=== PATIENT | male | born 1965 | race Caucasian/White ===

== ENCOUNTER 2018-06-23 07:38 | Outpatient (CLI) | payer BC ==
--- NOTE | 2018-06-23 10:22 | MRI ---
MRI CERVICAL SPINE: HISTORY: Patient complaining of right arm pain and numbness since October. TECHNIQUE: Multiplanar, multisequence, noncontrast enhanced MR images of the cervical spine obtained. FINDINGS: Images demonstrate an area of expansile central cystic change, beginning at the T2 level, extending i nferiorly, into the thoracic cord. There is a small, approximately 1 x 2 mm, right-sided, posterior, cervical component, which extends from the T1 level, extending upward to involve the entire right ce rvical spine cord length, extending all the way to the C2 level. 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 The inferior extent cannot be determined, as MRI of the thoracic spine is not ob tained. Correlate with MRI thoracic spine. In addition, contrast enhanced MR images of the cervical spine and thoracic spine are also recommende d. C1-C2: Unremarkable. C2-C3: There is a broad-based disk osteophyte complex, minimally but not significantly compressing t he thecal sac. The neural foramen are patent. C3-C4: There is a minimal broad-based disk bulge. The central canal and neural foramen are patent. C4-C5: There is a broad-based disk osteophyte complex centrally compressing the thecal sac, resultin g in moderate thecal sac compression. Moderate right-sided and minimal left-sided C4-C5 neural tanner inal narrowing is seen due to uncovertebral osteophyte hypertrophy. C5-C6: There is minimal disk desiccation. There is a broad-based disk osteophyte complex compressin g the thecal sac. There is moderate bilateral C5-C6 neural foraminal narrowing due to uncovertebral osteophyte hypertrophy. C6-C7: There is lanie desiccation seen. There is a broad-based disk osteophyte complex seen centrall y, compressing the thecal sac, resulting in a moderate degree of central stenosis. There is moderate bilateral neural foraminal narrowing seen. C7-T1: Unremarkable, except for the signal abnormality seen within the spinal cord. IMPRESSION: 1. 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 2. Multilevel disk desiccation and neural foraminal narrowing also seen. POS: [facility]
== END 2018-06-23 07:39 | disposition home or self-care (01) ==
LOC: TBSIIMAG 07:38
PROVIDERS: ATTEND Neurological Surgery
DX: M50.122 Cervical disc disorder at C5-C6 level with radiculopathy (principal); M48.02 Spinal stenosis, cervical region
CPT/HCPCS: 72141

== ENCOUNTER 2018-07-28 14:34 | Outpatient (CLI) | payer BC ==
[~2018-07-28 14:34] MED LIST: Gadobenate Dimeglumine 529 MG/1 ML (20ML VIAL) ONE
--- NOTE | 2018-07-28 16:40 | MRI ---
MRI THORACIC SPINE WITH AND WITHOUT CONTRAST: 07/28/18 HISTORY: 53-year-old male with G95.0 - syrinx found on cervical spine MRI. FINDINGS: There is a centrally located syrinx which begins at C7-T1, has greatest diameter at T3 in which the c ross-sectional AP and transverse dimensions are 0.8 x 0.8 cm, expanding the spinal cord at T3. It ext ends down to the T4-5 level. There is tapering of the syrinx at the superior and inferior ends. There are septations within the syrinx at the T1-2 level and at the T3-4 level. Inferior to that, the central canal of the spinal cord is minimally and mildly dilated to varying deg emiliano, on the order of 0.2 cm. This extends down to the T10-11 level. Parallel to the cranial aspect of this syrinx (which is probably a hydromyelia), there is another rig ht posterior syrinx (syringomyelia) that begins at approximately the T2 level and ascends up through the cervical spinal cord, fully demonstrated on the MRI of the cervical spine of 06/23/18. There is no abnormal enhancement to indicate tumor, associated with the syringes. There is no central spinal canal stenosis at any level, but the expanded spinal cord at the lower T2 to T3-4 levels resu lts in effacement of much of the surrounding CSF space around the spinal cord. The vertebral body hei ghts are maintained. Alignment is normal. No high grade degenerative disc disease. There is mild disc space narrowing at several levels in the mid and lower thoracic spine. No major bone marrow signal a bnormality. There are small focal round signal abnormalities in the T3, T4, and T5 vertebral bodies w hich are T1 and T2 hyperintense, probably representing small hemangiomas of bone. There is a larger r egion of T1 and T2 hyperintensity at the anterior aspect of the T10 vertebral body which does not exh ibit hyperintense signal on the STIR sequence, and appears to be benign. There is no extrinsic cord i mpingement except at the C7-T1 where there is disc-osteophyte complex indenting the spinal cord. Ther e is no extrinsic cord impingement in the thoracic spine proper. No high grade neural foraminal steno sis. IMPRESSION: 1. Syringohydromyelia (syrinx). 2. The centrally located syrinx is largest in the upper thoracic spine, where it expands the spi nal cord. There is mild hydromyelia throughout most of the rest of the thoracic spinal cord. 3. There is an off-center right posterior syrinx (syringomyelia) that begins in the upper thorac ic spine and ascends throughout the cervical spinal cord. 4. No evidence of neoplasm. POS: [facility]
== END 2018-07-28 14:35 | disposition home or self-care (01) ==
LOC: TBSIIMAG 14:34
PROVIDERS: ATTEND Neurological Surgery
DX: G95.0 Syringomyelia and syringobulbia (principal)
CPT/HCPCS: 72157; A9577

== ENCOUNTER 2019-01-13 09:16 | Outpatient (CLI) | payer BC ==
--- NOTE | 2019-01-13 11:24 | MRI ---
MRI THORACIC SPINE WITH AND WITHOUT CONTRAST: Date: 01/13/19 HISTORY: 53-year-old male with syrinx (syringohydromyelia). Follow-up. COMPARISON: 07/28/18. FINDINGS: There is an off-center right posterior syrinx that is present in the cervical spinal cord (incomplete ly included on this MRI of the thoracic spine), and descends down to approximately the T2 level of th e thoracic spine. Parallel to that, there is a large midline syrinx in the upper thoracic spinal cord, expanding the up per thoracic spinal cord, beginning at approximately T1 or T1-2, with cross-sectional AP and transver se dimensions of approximately 0.8 x 0.8 cm at T3. It extends down to the T4-5 level. There is contin uation of this syrinx as mild expansion of the central canal of the spinal cord (hydromyelia) approxi mately 0.2 cm caliber, down to the T10-11 level. Within the most expanded portion of the syrinx in the upper thoracic spine, there is T2-intermediate signal intensity material which does not enhance. This could represent CSF flow artifact if there is turbulent flow within the syrinx. It is less likely to represent nonenhancing neoplastic tumor or hem atoma. There is no abnormal enhancement within the spinal cord. No extrinsic impingement on the spina l cord in the thoracic spine proper. (There is disc-osteophyte complex mildly indenting the spinal co rd at C6-7 in the cervical spine.) No high grade bony central spinal canal stenosis at any level. Michelle tebral body heights are maintained. No interval change overall. IMPRESSION: 1. Syringohydromyelia (syrinx). 2. The centrally located syrinx is largest in the upper thoracic spine, where it expands the spinal cord. There is heterogeneous signal within the expanded portion of the syrinx. 3. There is an off-center right-sided syrinx (syringomyelia) that is located in the cervical spinal cord and extends down to the upper thoracic spinal cord. 4. No abnormal enhancement. 5. No interval change overall since 07/28/18. POS: [facility]
== END 2019-01-13 09:17 | disposition home or self-care (01) ==
LOC: BICMRI 09:16
PROVIDERS: ATTEND Neurological Surgery
DX: G95.0 Syringomyelia and syringobulbia (principal)
CPT/HCPCS: 72157; 82565

== ENCOUNTER 2019-05-30 14:38 | Outpatient (CLI) | payer BC ==
[~2019-05-30 14:38] MED LIST changes: -Gadobenate Dimeglumine 529 MG/1 ML (20ML VIAL) ONE; +Magnevist 469MG/ML 20 ML VIAL ONE
--- NOTE | 2019-05-30 16:10 | MRI ---
MRI THORACIC SPINE WITH AND WITHOUT CONTRAST: HISTORY: Syrinx. Follow-up exam. COMPARISON: 01/13/2019 12/15/2018 TECHNIQUE: MRI thoracic spine is performed with and without intravenous gadolinium administration. Multisequenti al, multiplanar imaging is performed. FINDINGS: Appropriate T1 marrow signal intensity of the thoracic vertebrae. Thoracic spine vertebral body heigh t is maintained. No fracture. No significant STIR hyperintensity to suggest vertebral body edema or ligamentous injury. Redemonstration of a T2 hyperintensity with cord expansion involving the distal cervical cord and upp er thoracic cord to the level of the T4 vertebral body. There is T1 signal isointensity with associated T2 hypointensity involving the expanded thoracic cord at the T3 level, unchanged. There is interval development of a small focus of septation along the inferior aspect of the expanded syrinx at the T3-T4 disc space. There is no evidence of enhancement o n the post contrast images. Distal to the area of expansion and T2 hyperintensity, there is an intermittent syrinx, also unchanged. The thoracic cord has overall normal size and signal intensity f rom the T4 level to the conus medullaris which terminates at the upper lumbar level. The visualized mediastinal structures, solid organs and lung parenchyma are unremarkable. T2 hyperint ensity in the right renal cortex measures 1.4 cm, compatible with a cyst. Throughout the thoracic spine, there is no significant central canal stenosis or significant neural f oraminal narrowing IMPRESSION: 1. Essentially stable syringohydromyelia involving the visualized distal cervical cord and thoracic c ord. 2. Stable centrally located syrinx without expansion of the upper thoracic cord. Heterogeneous signal intensity within the expanded portion of the syrinx is unchanged. There is no abnormal enhancement. Interval development of a small focus of septation along the inferior aspect of the cent rally expanded syrinx at the T3-T4 disc space. Transcribed Date/Time: 05/30/2019 4:15 PM
== END 2019-05-30 14:39 | disposition home or self-care (01) ==
LOC: TBSIIMAG 14:38
PROVIDERS: ATTEND Neurological Surgery
DX: G95.0 Syringomyelia and syringobulbia (principal)
CPT/HCPCS: 72157; A9579

== ENCOUNTER 2019-06-02 06:44 | Outpatient (CLI) | payer BC | END 2019-06-02 06:45 | disposition home or self-care (01) | LOC: LABBT 06:44 | PROVIDERS: ATTEND Neurological Surgery | DX: Z01.818 Encounter for other preprocedural examination (principal); M54.12 Radiculopathy, cervical region | CPT/HCPCS: 93005; 93010 ==

== ENCOUNTER 2019-06-06 05:38 | Day surgery (SDC) | payer BC ==
[2019-06-02 09:42] VITALS: BMI 34.8
[2019-06-06] MEDS ORDERED: Fentanyl 100 MCG/2 ML VIAL ONE ×2 (06:36→08:39)
[2019-06-06] MEDS ORDERED: Thrombin 5000 UNITS/5 ML VIAL ONE (06:47)
[2019-06-06] MEDS ORDERED: Midazolam HCl 2 mg/2 ml Vial ONE (06:57)
--- NOTE | 2019-06-06 07:05 | HP ---
HISTORY OF PRESENT ILLNESS: Mr. Walker is a pleasant 53-year-old man, here for evaluation of significant cervical radiculopathy symptoms that would fit well a C6 pattern. He does have a syrinx on MRI, and this has been these other symptoms are more recent. reveals narrowing at C5-6 that would fit this. He has attempted injections, physical therapy, and medications with some relief, however, nonsustained. He hopes to discuss surgical intervention at this time. PAST MEDICAL HISTORY: Significant for anxiety, hypertension. PAST SURGICAL HISTORY: Tonsillectomy. CURRENT MEDICATIONS: 1. Olmesartan. 2. . 3. Aspirin. 4. Alprazolam. 5. Fenofibrate. ALLERGIES: NO KNOWN DRUG ALLERGIES. PHYSICAL EXAMINATION: GENERAL: The patient is alert and oriented x3. NEUROLOGIC: Gait is normal. No ataxia. He has some mild restriction in his cervical range of motion secondary to pain. Normal 5/5 strength in all movements of the bilateral upper extremities. No obvious sensory disturbance that I can discern. ASSESSMENT: Cervical radiculopathy. PLAN: Dr. Howell met with the patient, reviewed imaging, advocated for C5-6 ACDF. He explained to the patient the risks, benefits, and alternatives to the procedure. The patient expressed understanding and elected to move forward with surgery as discussed. I do believe the patient is mentally component and capable of making medical decisions for himself. We will move forward with surgery as planned. Job ID: [id number]
[2019-06-06] MEDS ORDERED: Tamsulosin HCl 0.4 MG CAP ONE (08:39)
[2019-06-06] MEDS ORDERED: Cyclobenzaprine 10 MG TAB ONE (09:14)
[2019-06-06] MEDS ORDERED: Morphine 2 MG/ML SYRINGE ONE (09:15)
[2019-06-06] MEDS ORDERED: Acetaminophen/Codeine 30-300mg Tablet ONE (09:43)
[2019-06-06] MEDS ORDERED: Lidocaine 1% PF 5 ML VIAL ONE (10:10)
[2019-06-06] MEDS ORDERED: Ketorolac Tromethamine 30 MG/ML VIAL ONE (10:10)
[2019-06-06] MEDS ORDERED: Rocuronium Bromide 10 MG/ML (10ML VIAL) ONE (10:10)
[2019-06-06] MEDS ORDERED: PHENYLEPHRINE-NS 100 MCG/ML 10 ML SYRINGE ONE (10:10)
[2019-06-06] MEDS ORDERED: Ondansetron PF 4 MG/2 ML Vial ONE (10:10)
[2019-06-06] MEDS ORDERED: Dexamethasone 20 MG/5 ML VIAL ONE (10:10)
[2019-06-06] MEDS ORDERED: PROPOFOL 200 MG/20 ML VIAL ONE (10:10)
--- NOTE | 2019-06-06 11:40 | OP ---
DATE OF PROCEDURE: 06/06/2019 BROADCAST CORRESPONDENT: Familia Fournier PA-C INDICATION: Pain. DIAGNOSIS: Cervical radiculopathy. PROCEDURE PERFORMED: Anterior cervical diskectomy and fusion, C5-C6. ANESTHESIA: General. DESCRIPTION OF PROCEDURE: The patient was brought into the operating room and placed under general anesthesia. He was placed on table in a supine position. A transverse incision was planned over the lateral aspect of the neck on the right. After prepping and draping and after an appropriate perioperative pause, the incision was created. The underlying platysma muscle was identified and incised. A blunt tissue plane was used to gain access to the prevertebral space. Self-retaining retractors were then placed for optimal exposure. A C-arm image was obtained to confirm the appropriate level. An annulotomy was then performed in the C5-C6 disk space. All disk material as well as anterior and posterior osteophytes were removed. After completing the decompression, a 7-mm lordotic PEEK cage packed with allograft and autograft material was placed within the interbody space. An anterior cervical plate was then fashioned to the front of spine and secured with a total of 4 fixed screws. Midline and lateral structures were inspected and found to be free from significant trauma. The wound was irrigated. Hemostasis was maintained throughout. The wound was then closed in anatomic layers and a pressure dressing was applied. There were no known procedural complications. Job ID: [id number]
== END 2019-06-06 11:15 | disposition home or self-care (01) ==
LOC: SDC 05:38
PROVIDERS: ATTEND Neurological Surgery
PROC: 0RG10A0 Fusion of Cervical Vertebral Joint with Interbody Fusion Device, Anterior Approach, Anterior Column, Open Approach (ICD-10-PCS; principal; 2019-06-06)
PROC: 0RT30ZZ Resection of Cervical Vertebral Disc, Open Approach (ICD-10-PCS; principal; 2019-06-06)
DX: M54.12 Radiculopathy, cervical region (principal); I10 Essential (primary) hypertension; F41.9 Anxiety disorder, unspecified; Z79.82 Long term (current) use of aspirin; Z79.899 Other long term (current) drug therapy
CPT/HCPCS: 76000; C1713; C1776; J0690; J1100; J1885; J2001; J2250; J2270; J2405; J2704; J3010

== ENCOUNTER 2019-11-08 13:19 | Outpatient (CLI) | payer BC ==
--- NOTE | 2019-11-08 15:03 | MRI ---
MRI cervical spine with and without contrast: DATE: 11/08/2019 HISTORY: 54-year-old male with cervical radiculopathy COMPARISON: 06/23/2018 FINDINGS: Again noted is the expansile syrinx in the upper thoracic spinal cord, incompletely imaged on this C- spine MRI. Centered in the right posterior aspect of the spinal cord, there is syrinx, syringomyelia, from upper-mid C2 level down to at least the T1 level of the upper thoracic spine. The cross-sectional caliber of this syrinx is approximately 0.4 x 0.1 cm. Additionally, there is minimal dilation of the central canal of the spinal cord (hydromyelia) at midl ine at C2 level approximately 1 mm caliber, which also is seen all all levels from C3 through upper thoracic spine. Cerebellar tonsils are slightly peg-shaped, and protrude inferior to the foramen magnum a distance of approximately 6 to 7 mm. Cervical spinal canal is diffusely small on a congenital basis due to developmentally short pedicles. There is no abnormal intramedullary enhancement. No abnormal enhancement or mass in the spinal canal, bone, or perivertebral spaces. Caliber of spinal cord is normal. C1-2: Mild to moderate central stenosis entirely on developmental basis. C2-3: Normal disc space and facet joints. Moderate central spinal canal stenosis entirely on developm ental basis. No neural foraminal stenosis. C3-4: Disc space maintained. Essentially normal facet joints. Moderate central spinal canal stenosis entirely on developmental basis. No neural foraminal stenosis. Normal facet joints. C4-5: Broad-based central and bilateral paracentral disc protrusion or disc-osteophyte complex exacer suarez the developmentally small caliber spinal canal, indenting the spinal cord, resulting in severe central spinal canal stenosis. Small bilateral uncinate process osteophytes cause at least mil d bilateral neural foraminal stenosis. No high-grade facet DJD. C5-6: New ACDF hardware. Shallow, broad-based disc-osteophyte complex abuts the ventral surface of sp inal cord, exacerbating the developmentally small caliber spinal canal, resulting in. Moderate size bilateral uncinate process osteophytes cause moderate-severe bilateral neural foraminal stenosis some what severe central spinal canal stenosis. No high-grade facet DJD. C6-7: Chronic minimal anterolisthesis of C6 on C7, plus broad-based central and bilateral paracentral disc-osteophyte that indents the ventral surface of spinal cord. Severe central spinal canal stenosis. Bilateral uncinate process osteophytes of moderate size causing mild to moderate bilateral neural foraminal stenosis. Mild to moderate disc space narrowing. C7-T1: No central stenosis. Bilateral mild to moderate neural foraminal stenosis. At least mild bilat eral facet DJD. Disc space maintained. IMPRESSION: 1. The only interval change is new anterior cervical discectomy and fusion at C5-6. 2. Syringohydromyelia involving essentially the entire cervical spinal cord, consisting of right post erior syringomyelia, and tiny midline hydromyelia. 3. Larger expansile syrinx at upper thoracic spine, incompletely imaged. 4. Developmental a small caliber spinal canal exacerbated by mild cervical spondylosis. Multiple leve ls of high-grade central spinal canal stenosis and high-grade neural foraminal stenosis, not significant changed. 5. Mild Chiari I malformation.
== END 2019-11-08 13:20 | disposition home or self-care (01) ==
LOC: TBSIIMAG 13:19
PROVIDERS: ATTEND Neurological Surgery
DX: M47.22 Other spondylosis with radiculopathy, cervical region (principal); G95.0 Syringomyelia and syringobulbia; M48.02 Spinal stenosis, cervical region; G93.5 Compression of brain; Q06.4 Hydromyelia
CPT/HCPCS: 72156

== ENCOUNTER 2020-05-14 10:41 | Outpatient (CLI) | payer BC ==
--- NOTE | 2020-05-14 12:22 | RAD ---
CERVICAL SPINE 3 VIEWS: Date; 05/14/2020 HISTORY: Cervicalgia. Prior fusion procedure. No comparison. FINDINGS: Anterior fusion change noted with anterior plate and screws transfixing C5-6 with interbody implant. Moderate degenerative changes. Loss of disc space at C6-7. Anterior osteophytes at C4, C6, C7, and T1 . Mild posterior spondylosis at C5-6 and C6-7. IMPRESSION: Postoperative and degenerative changes cervical spine as noted. POS: [facility]
== END 2020-05-14 10:42 | disposition home or self-care (01) ==
LOC: BICRAD 10:41
PROVIDERS: ATTEND Neurological Surgery
DX: M54.2 Cervicalgia (principal); M47.812 Spondylosis without myelopathy or radiculopathy, cervical region; Z98.1 Arthrodesis status
CPT/HCPCS: 72040

== ENCOUNTER 2020-12-18 12:06 | Outpatient (CLI) | payer BC | END 2020-12-18 12:07 | disposition home or self-care (01) | LOC: BICRAD 12:06 | PROVIDERS: ATTEND Internal Medicine | DX: R05 Cough (principal) | CPT/HCPCS: 71046 ==

== ENCOUNTER 2023-11-27 07:45 | Outpatient (CLI) | payer BC, OTHER | END 2023-11-27 07:46 | disposition home or self-care (01) | LOC: SCSMRI 07:45 | PROVIDERS: ATTEND Neurological Surgery | DX: M47.22 Other spondylosis with radiculopathy, cervical region (principal); G95.0 Syringomyelia and syringobulbia; Z98.890 Other specified postprocedural states; Z98.1 Arthrodesis status | CPT/HCPCS: 72156; 72157 ==

== ENCOUNTER 2025-05-26 10:02 | Outpatient (CLI) | payer BC | END 2025-05-26 10:03 | disposition home or self-care (01) | LOC: ULT 10:02 | PROVIDERS: ATTEND Internal Medicine | DX: R79.89 Other specified abnormal findings of blood chemistry (principal); N28.1 Cyst of kidney, acquired; R93.2 Abnormal findings on diagnostic imaging of liver and biliary tract; K76.0 Fatty (change of) liver, not elsewhere classified | CPT/HCPCS: 76700 ==